=== PATIENT | female | born 1940 | race Caucasian/White ===

== ENCOUNTER 2017-10-04 17:11 | Inpatient (IN) ==
[2017-10-04 17:40] LABS: Basophils # 0.1 10*3/uL (0.0-0.2); Basophils % 0.3 % (0.0-0.8); Eosinophils # 0.1 10*3/uL (0.0-0.87); Eosinophils % 0.4 % (0.00-10.9); Hematocrit 45.7 VOL% (35.7-47.0); Hemoglobin 14.9 GM/DL (12.0-16.0); Immature Granulocytes % 0.8 %; Immature Granulocytes Absolute 0.19 #; Lymphocytes # 2.4 10*3/uL (1.4-4.0); Lymphocytes % 10.6 % (21.3-54.2); Mean Corpuscular HGB Conc 32.6 GM/DL (32-36); Mean Corpuscular Hemoglobin 33 PG (27-34); Mean Corpuscular Volume 100.7 FL (87-102); Mean Platelet Volume 10.1 FL (9.6-12.0); Monocytes # 0.7 10*3/uL (0.11-0.8); Monocytes % 2.9 % (1.7-12.7); Neutrophils # 19.5 10*3/uL (1.4-7.4); Platelet Count 188 T/CUMM (130-400); Red Blood Count 4.54 MC/CUMM (3.8-5.5); White Blood Count 22.9 T/CUMM (4-12)
[2017-10-04 17:47] LABS: INR 1.4; PT Patient Result 14.6 SECS
[2017-10-04 18:00] LABS: Albumin 3.9 G/DL (3.4-5.0); Bilirubin,Total 1.2 MG/DL (0.2-1.0); Calcium 9.2 MG/DL (8.5-10.1); Osmolality,Calculated 281.7 MOS/KG (273-304); Potassium 4.8 MMOL/L (3.5-5.1); Total Protein 7.9 G/DL (6.4-8.3)
[2017-10-04 18:07] LABS: Apearance,Urine Slightly Hazy (Clear); Bilirubin,Urine Negative (Negative); Blood, Urine Small mg/dL (Negative); Glucose,Urine (UA) 50 mg/dL (Negative); Ketones,Urine Negative (Negative); Mucus,Urine Occasional /LPF (Occasional); Nitrite,Urine Negative (Negative); Protein,Urine >=500 MG/DL; RBC,Urine 4 /HPF (0-4); Squamous Epithelial Cell,Urine Occasional /HPF (0-10); Urine Color Yellow (Yellow); Urine Specific Gravity 1.048 (1.001-1.035); Urine Urobilinogen < 2.0 EU/DL (0.2-1.0); WBC,Urine 2 /HPF (0-6)
[2017-10-04 18:09] LABS: ABG Base Excess -5.1 MMOL/L (-2.5-2.5); ABG HCO3 20.3 MMOL/L (20-26); ABG Oxygen Saturation 99.3 % (95-100); ABG TCO2 23.3 MMOL/L (23-27)
[2017-10-04 18:10] LABS: Band Neutrophils 7 % (0-10); Lymphocytes 10 % (20-55); Platelet Estimate Adequate; Segmented Neutrophils 81 % (50-85); Total Cells Counted 100
[2017-10-04 18:13] LABS: ABG PCO2 71.7 MM HG (35-48)
[2017-10-04] MEDS ORDERED: ALBUTEROL/IPRATROPIUM 3 ML NEB RESP TX STA (18:37)
[2017-10-04] MEDS ORDERED: FUROSEMIDE 40 MG/4 ML VIAL IV STA (18:37)
[2017-10-04] MEDS ORDERED: PIPERACILLIN/TAZOBACTAM 3,375 MG in SODIUM CHLORIDE 0.9% 100 ML IV ONE (19:18)
[2017-10-04] MEDS ORDERED: ACETAMINOPHEN 325 MG TABLET PO PRN (20:23)
[2017-10-04] MEDS ORDERED: ONDANSETRON 4 MG/2 ML VIAL IV PRN (20:23)
[2017-10-04] MEDS ORDERED: guaiFENesin/DM ER 600-30 MG TABLET PO PRN (20:23)
[2017-10-04] MEDS ORDERED: methylPREDNISolone SOD SUC 40 MG/1 ML VIAL IV SCH (20:30)
[2017-10-04] MEDS ORDERED: SODIUM CHLORIDE 0.9% 1,000 ML IV SCH ×2 (20:30→22:30)
[2017-10-04 20:53] LABS: Lactic Acid 2.1 MMOL/L (0.4-2.0)
[2017-10-04] MEDS ORDERED: ENOXAPARIN 40 MG/0.4 ML SYRINGE SUBCUT SCH (21:00)
[2017-10-04] MEDS ORDERED: NOREPINEPHRINE 8 MG in SODIUM CHLORIDE 0.9% 242 ML IV PRN (22:09)
[2017-10-04] MEDS ORDERED: NOREPINEPHRINE 4 MG/4 ML VIAL IV ONE (22:14)
[2017-10-04] MEDS ORDERED: VECURONIUM 10 MG VIAL IV ONE (22:16)
[2017-10-04] MEDS ORDERED: ETOMIDATE 20 MG/10 ML VIAL IV ONE (22:16)
[2017-10-04 22:26] LABS: Basophils # 0.1 10*3/uL (0.0-0.2); Basophils % 0.2 % (0.0-0.8); Eosinophils % 0.1 % (0.00-10.9); Hematocrit 48.5 VOL% (35.7-47.0); Hemoglobin 15.4 GM/DL (12.0-16.0); Immature Granulocytes % 0.8 %; Immature Granulocytes Absolute 0.24 #; Lymphocytes # 1.4 10*3/uL (1.4-4.0); Lymphocytes % 4.7 % (21.3-54.2); Mean Corpuscular HGB Conc 31.8 GM/DL (32-36); Mean Corpuscular Hemoglobin 32 PG (27-34); Mean Corpuscular Volume 100.4 FL (87-102); Mean Platelet Volume 9.9 FL (9.6-12.0); Monocytes # 1.8 10*3/uL (0.11-0.8); NRBC # 0.02 10*3/uL; Neutrophils # 26.5 10*3/uL (1.4-7.4); Neutrophils % 88.2 % (38.7-73.9); Platelet Count 166 T/CUMM (130-400); Red Blood Count 4.83 MC/CUMM (3.8-5.5); Red Cell Distribution Width 13.2 % (9.3-17.3); White Blood Count 30.1 T/CUMM (4-12)
[2017-10-04 22:35] LABS: INR 1.4; PT Patient Result 14.5 SECS; Partial Thromboplastin Time 31.3 SECS (0-40)
[2017-10-04] MEDS ORDERED: EPINEPHrine 1 MG/ML VIAL ONE (22:39)
[2017-10-04 22:46] LABS: Albumin 3.3 G/DL (3.4-5.0); Bilirubin,Total 1.9 MG/DL (0.2-1.0); Calcium 8.7 MG/DL (8.5-10.1); Osmolality,Calculated 281.5 MOS/KG (273-304); Potassium 4.8 MMOL/L (3.5-5.1); Total Protein 7.3 G/DL (6.4-8.3)
[2017-10-05 00:14] LABS: Band Neutrophils 16 % (0-10); Lymphocytes 11 % (20-55); Metamyelocytes 1 %; Segmented Neutrophils 64 % (50-85)
[2017-10-05 00:15] LABS: Platelet Estimate Normal; Polychromasia Few
[2017-10-05 00:16] LABS: Total Cells Counted 100
[2017-10-05 00:51] VITALS: BP 90/59
[2017-10-05] MEDS ORDERED: ALBUTEROL/IPRATROPIUM 3 ML NEB RESP TX SCH (01:00)
== END 2017-10-04 22:43 | disposition expired | DRG 208 ==
LOC: N.ED 17:11 → N.EDINP 20:23 → N.CC 21:27
PROVIDERS: ADMIT Internal Medicine Geriatric Medicine; ATTEND Internal Medicine Geriatric Medicine